=== PATIENT | female | born 1935 ===

== ENCOUNTER 2017-11-22 17:55 | Emergency (ER) | payer OTHER ==
[~2017-11-22] VITALS: Ht 162.6 cm; Wt 67.1 kg
[~2017-11-22 17:55] MED LIST: ASA81 MG; ATORVASTATIN CA10 MG; DIOVAN40 MG; ENBREL25 MG/0.5; IPRAT-ALBUT 0.5-3 ML
== END 2017-11-23 15:32 | disposition home or self-care (01) ==
LOC: ER 17:55
DX: J44.9 Chronic obstructive pulmonary disease, unspecified (principal); J16.8 Pneumonia due to other specified infectious organisms; I87.2 Venous insufficiency (chronic) (peripheral); M79.605 Pain in left leg; M79.604 Pain in right leg